=== PATIENT | male | born 1960 | race African-American/Black ===

== ENCOUNTER 2019-02-04 08:35 | Emergency (ER) | payer MEDICAID ==
[~2019-02-04] VITALS: Ht 182.9 cm; Wt 90.8 kg
--- NOTE | 2019-02-04 09:10 | NUR ---
PT PRESENTS TO ED WITH N/V/D X3 DAYS, PT HAS NO MEDICAL HX. HAS NOT TAKEN ANYTHING FOR [facility]XS.
[2019-02-04] MEDS ORDERED: DEXAMETHASONE 4 MG/ML, 1ML PO ONE (09:30)
[2019-02-04 09:48] VITALS: BP 131/94
== END 2019-02-04 09:50 | disposition home or self-care (01) ==
LOC: ED 09:44
DX: J02.0 Streptococcal pharyngitis (principal)
CPT/HCPCS: 99283

== ENCOUNTER 2019-09-03 04:30 | Emergency (ER) | payer SELFPAY ==
[~2019-09-03] VITALS: Ht 182.9 cm; Wt 77.0 kg
[2019-09-03 05:04] VITALS: BP 137/97
[2019-09-03 05:25] LABS: CHLORIDE 108 mmol/L (98-107)
[2019-09-03 05:30] LABS: MEAN CORPUSCULAR HEMOGLOBIN 24.4 pg (27.5-34.5); MEAN CORPUSCULAR HGB CONC 31.4 g/dL (33.2-36.2); MEAN CORPUSCULAR VOLUME 77.9 fL (81-97); MEAN PLATELET VOLUME 9.8 fL (7.4-10.4); PLATELET COUNT 223 x10^3/uL (130-400); RED BLOOD COUNT 6.66 x10^6/uL (4.38-5.82)
[2019-09-03 05:31] LABS: ALBUMIN 3.8 g/dL (3.4-5.0); ANION GAP 9 mmol/L (5-15); CALCIUM 8.9 mg/dL (8.5-10.1)
[2019-09-03 05:53] LABS: BASOPHILS # (AUTO) 0.03 x10^3/uL (0-0.1); BASOPHILS % (AUTO) 0 % (0-1); EOSINOPHILS # (AUTO) 0.05 x10^3/uL (0-0.4); EOSINOPHILS % (AUTO) 1 % (1-7); LYMPHOCYTES # (AUTO) 1.72 x10^3/uL (1-3.4); LYMPHOCYTES % (AUTO) 28 % (22-44); MD SCAN; MONOCYTES # (AUTO) 0.45 x10^3/uL (0.2-0.8); MONOCYTES % (AUTO) 7 % (2-9); NEUTROPHILS # (AUTO) 3.85 x10^3/uL (1.8-6.8); NEUTROPHILS % (AUTO) 63 % (42-75)
[2019-09-03 06:05] LABS: ALANINE AMINOTRANSFERASE 57 U/L (12-78); ALKALINE PHOSPHATASE 97 U/L (45-117); CREATININE 1.06 mg/dL (0.7-1.3); TOTAL PROTEIN 7.4 g/dL (6.4-8.2); TROPONIN I < 0.015 ng/mL (0.000-0.045)
--- NOTE | 2019-09-03 06:56 | NUR ---
Patient/Caregiver given discharge instructions and they have confirmed that they understand the instructions. Patient ambulatory with steady gait.
== END 2019-09-03 06:57 | disposition home or self-care (01) ==
LOC: ED 06:09
DX: R53.1 Weakness (principal); R05 Cough; R20.2 Paresthesia of skin; I10 Essential (primary) hypertension
CPT/HCPCS: 36415; 71046; 80053; 84484; 85025; 93005; 99284

== ENCOUNTER 2021-02-16 05:24 | Emergency (ER) | payer MEDICAID ==
[~2021-02-16] VITALS: Ht 182.9 cm; Wt 73.4 kg
[2021-02-16] MEDS ORDERED: DIPHENHYDRAMINE 50 MG CAPSULE PO PRN (06:00)
[2021-02-16] MEDS ORDERED: DIPHENHYDRAMINE 50 MG CAPSULE ONE (06:08)
[2021-02-16 06:22] VITALS: BP 144/98
== END 2021-02-16 06:51 | disposition home or self-care (01) ==
LOC: ED 05:52
DX: L24.81 Irritant contact dermatitis due to metals (principal); I10 Essential (primary) hypertension
CPT/HCPCS: 99283